=== PATIENT | male | born 1935 | race Caucasian/White ===

== ENCOUNTER 2016-10-24 08:41 | Inpatient (IN) | payer OTHER ==
[2016-10-24] MEDS ORDERED: Sodium Chloride 0.9% 10 ML Syringe FLUSH PRN (08:52)
[2016-10-24] MEDS ORDERED: Lactated Ringers 1,000 ML IV SCH (09:15)
[2016-10-24] MEDS ORDERED: Sodium Chloride 0.9% 500 ML IV ONE (09:18)
[2016-10-24 10:02] LABS: CHLORIDE,CL 105 mmol/L (98-107); SODIUM,NA 143 mmol/L (136-145)
[2016-10-24] MEDS ORDERED: Oseltamivir 75 MG Cap PO ONE (10:02)
--- NOTE | 2016-10-24 12:46 | PCM.HP ---
H&P History of Present Illness - General Date of Service: 10/24/16 Admit Problem/Dx: Admission Diagnosis/Problem Admission Diagnosis/Problem Influenza Source of Information: Patient, Family History Limitations: Reports: Altered mental status (patient's gives most of the history) - History of Present Illness Initial Comments - Free Text/Narative: Mr. Palomares is an 81 yo male with past medical history of atrial fibrillation, hypertension, sleep apnea, hyperlipidemia, dementia, anxiety, multiple cancers ( colon, skin, prostate, melanoma), history of TIA, status post mitral valve surgery in 1998, gout, and BPH who presented to the ED today for evaluation of generalized weakness and rigors. Over the past 2-3 days, he has had some mild rhinorrhea and cough. Overnight, his cough significantly worsened and when he woke up this morning his noticed that he was very weak and was shaking. He was responsive during this entire time. He had not felt feverish and they did not check his temperature at home. He did get a flu shot this year and denies any known exposures to influenza. His appetite has been good and he has not had any vomiting or diarrhea. He does have underlying dementia and is acting like his usual self. There are no known sick contacts. He has not been taking any [id number] medications for his symptoms. - Related Data Allergies/Adverse Reactions: Allergies Allergy/AdvReac Type Severity Reaction Status Date / Time lactose Allergy Stomach Verified 10/24/16 09:00 Upset Home Medications: Home Meds Allopurinol [Zyloprim] 100 mg PO DAILY 12/14/13 [History] Aspirin [Joel Chewable Aspirin] 81 mg PO DAILY 12/14/13 [History] Cholecalciferol (Vitamin D3) [Vitamin D3] 2,000 unit PO DAILY 12/14/13 [History] Diltiazem [Cardizem CD] 120 mg PO DAILY 12/14/13 [History] LORazepam [Ativan] 1 mg PO BEDTIME 12/14/13 [History] Metoprolol Succinate [Toprol XL] 75 mg PO DAILY 12/14/13 [History] Multivitamin [Multi-Vitamin Daily] 1 tab PO DAILY 12/14/13 [History] Pravastatin [Pravachol] 40 mg PO BEDTIME 12/14/13 [History] Acetaminophen [Pain Relief] 650 mg PO QID PRN 04/13/15 [History] Mirtazapine 7.5 mg PO BEDTIME 04/13/15 [History] Lutein/Minerals/Vit A,C & E [Ocuvite] 1 tab PO DAILY 10/24/16 [History] Memantine HCl [Memantine HCl] 10 mg PO BID 10/24/16 [History] Warfarin [Coumadin] 1.25 mg PO WE@20 10/24/16 [History] Warfarin [Coumadin] 2.5 mg PO ASDIRECTED 10/24/16 [History] Past Medical History HEENT History: Reports: Cataract Cardiovascular History: Reports: Afib, High cholesterol, Hypertension Other Cardiovascular History: mitral valve repair Respiratory History: Reports: Other (see below) Other Respiratory History: DANUTA on CPAP Gastrointestinal History: Reports: None Genitourinary History: Reports: BPH Musculoskeletal History: Reports: Arthritis, Gout Neurological History: Reports: TIA, Other (see below) Other Neuro History: Dementia Psychiatric History: Reports: Anxiety, Dementia Endocrine/Metabolic History: Reports: None Hematologic History: Reports: None Immunologic History: Reports: None Oncologic (Cancer) History: Reports: Colon, Prostate Dermatologic History: Reports: Melanoma, Other (see below) Other Dermatologic History: basal cell carcinoma - Infectious Disease History Infectious Disease History: Reports: None - Past Surgical History HEENT Surgical History: Reports: Cataract surgery Cardiovascular Surgical History: Reports: Other (see below) Other Cardiovascular Surgeries/Procedures: mitral valve repair GI Surgical History: Reports: Hernia, inguinal, Other (see below) Other GI Surgeries/Procedures: colon cancer. colectomy Male Surgical History: Reports: Prostatectomy Other Male Surgeries/Procedures: prostate cancer Musculoskeletal Surgical History: Reports: Knee replacement Other Musculoskeletal Surgeries/Procedures:: bilateral TKA, back surgery. bunionectomy. back surgery Dermatological Surgical History: Reports: Other (see below) Other Dermatological Surgeries/Procedures: Mohs Social & Family History - Family History Cardiac: Reports: CAD, High cholesterol Neurological: Reports: CVA Oncologic: Reports: Lymphoma - Tobacco Use Smoking Status *Q: Former Smoker Years of Tobacco use: 3 Used Tobacco, but Quit: Yes Month Tobacco Last Used: 01/1950 Second Hand Smoke Exposure: No - Caffeine Use Caffeine Use: Reports: None - Alcohol Use Alcohol Use History: No Days Per Week of Alcohol Use: 0 Number of Drinks Per Day: 0 Total Drinks Per Week: 0 Alcohol Use in Last Twelve Months: No - Recreational Drug Use Recreational Drug Use: No Drug Use in Last 12 Months: No - Living Situation & Occupation Living situation: Reports: , with significant other Occupation: retired (Independent for ADLs; 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 Denies: sore throat Pulmonary: Reports: Cough. Denies: Shortness of Breath, Pleuritic Chest Pain Cardiovascular: Reports: no symptoms Gastrointestinal: Reports: No symptoms Genitourinary: Reports: no symptoms Musculoskeletal: Reports: no symptoms Skin: Reports: no symptoms Psychiatric: Reports: no symptoms Neurological: Reports: No Symptoms Exam - Exam Exam: See Below - Vital Signs Vital Signs: Last Vital Signs Temp 38.1 C 10/24/16 10:20 Pulse 112 H 10/24/16 10:20 Resp 20 10/24/16 10:20 BP 142/68 H 10/24/16 10:20 Pulse Ox 96 10/24/16 10:20 Weight: 73.845 kg - Exam Quality Assessment: supplemental oxygen General: alert, cooperative. No: mild distress, moderate distress, severe distress HEENT: Conjunctiva clear, EOMI, Hearing intact, Mucosa moist & pink, Pupils equal, Pupils reactive Neck: supple, trachea midline. No: lymphadenopathy, thyromegaly Lungs: Crackles (in the lower lung thakkar bilaterally) Cardiovascular: regular rate, regular rhythm, normal S1, normal S2. No: systolic murmur, diastolic murmur Abdomen: normal bowel sounds, soft. No: organomegaly, tenderness Extremities: normal inspection, normal pulses. No: edema Skin: warm, dry, intact Neurological: other (unable to lift right arm for orthopedic reasons (rotator cuff tear) but otherwise nonfocal neuro exam) - Patient Data Result Diagrams: 10/24/16 09:15 10/24/16 09:15 *Q Meaningful Use (ADM) - VTE *Q VTE Criteria *Q: - Stroke *Q Stroke Criteria *Q: - AMI *Q AMI Criteria *Q: - Problem List (1) Influenza B SNOMED Code(s): 01999458 ICD Code: J10.1 - FLU DUE TO OTH IDENT INFLUENZA VIRUS W OTH RESP MANIFEST Status: Acute Current Visit: Yes Problem Details: - Influenza B positive, explaining his constellation of symptoms. - Does have some SIRS response with this. - No evidence for bacterial pneumonia based on WBC and CXR. - Will treat with tamiflu given age and duration of symptoms around 48 hours. Needs renal dosing due to CrCl <60. Will do 30 mg BID per recommendations. - Oxygen as needed. (2) Generalized weakness SNOMED Code(s): 77204165 ICD Code: R53.1 - WEAKNESS Status: Acute Current Visit: Yes Problem Details: - Likely secondary to influenza B. All other laboratory testing ( electrolytes, TSH, liver function, kidney function, calcium) unremarkable; chest x-ray without evidence of bacterial pneumonia. Other infectious cause (UTI , GI, skin) less likely based on history and exam. - Will monitor for improvement with treatment of influenza B. - If issues with weakness do not improve with treatment of influenza, will have PT evaluate and treat. (3) Acute kidney injury SNOMED Code(s): 71140012 ICD Code: N17.9 - ACUTE KIDNEY FAILURE, UNSPECIFIED Status: Acute Current Visit: Yes Problem Details: - Baseline creatinine was 1.1 on last check (02/2016). - Creatinine is up to 1.4 today, meeting criteria for BOBBY. - Likely prerenal based on history vs. underlying CKD. He has no history to suggest obstructive or intrinsic renal cause. - Will monitor creatinine after hydration and pursue additional work-up if it does not improve. - He will get a total of 1 L IV and then switch to PO. (4) Dehydration SNOMED Code(s): 82434454 ICD Code: E86.0 - DEHYDRATION Status: Acute Current Visit: Yes Problem Details: - See above under BOBBY. (5) Hypertension SNOMED Code(s): 04866429 ICD Code: I10 - ESSENTIAL (PRIMARY) HYPERTENSION Status: Chronic Current Visit: Yes Problem Details: - BP good on admission. - Continue diltiazem and metoprolol. Qualifiers: Hypertension type: essential hypertension Qualified Code(s): I10 - Essential (primary) hypertension (6) Central sleep apnea Status: Chronic Current Visit: Yes Problem Details: - Will have him get his CPAP from home to use while admitted. (7) Hyperlipidemia SNOMED Code(s): 97846848 ICD Code: E78.5 - HYPERLIPIDEMIA, UNSPECIFIED Status: Chronic Current Visit: Yes Problem Details: - Continue pravastatin. Qualifiers: Hyperlipidemia type: unspecified Qualified Code(s): E78.5 - Hyperlipidemia , unspecified (8) Anxiety SNOMED Code(s): 56795943 ICD Code: F41.9 - ANXIETY DISORDER, UNSPECIFIED Status: Chronic Current Visit: Yes Problem Details: - Continue lorazepam and mirtazapine. (9) A-fib SNOMED Code(s): 37207753 ICD Code: I48.91 - UNSPECIFIED ATRIAL FIBRILLATION Status: Chronic Priority: Medium Current Visit: No Problem Details: - Rate is up today but suspect that is more related to SIRS. - Will continue diltiazem and metoprolol. - Monitor with q4 hour checks. - Patient does not require telemetry. - INR is 1.5. Patient does not have an indication for bridging and has had history of easy bleeding. - Will hold off on any lovenox today. If INR is down further tomorrow, will need to consider starting this for VTE prophylaxis. Qualifiers: Atrial fibrillation type: chronic Qualified Code(s): I48.2 - Chronic atrial fibrillation (10) Cerebrovascular disease SNOMED Code(s): 17905198 ICD Code: I67.9 - CEREBROVASCULAR DISEASE, UNSPECIFIED Status: Chronic Current Visit: Yes Problem Details: - Has h/o recurrent TIAs. - No current symptoms of a stroke. - Continue medications as noted under other problems above. Also continue aspirin. (11) Dementia SNOMED Code(s): 36774136 ICD Code: F03.90 - UNSPECIFIED DEMENTIA WITHOUT BEHAVIORAL DISTURBANCE Status: Chronic Current Visit: No Problem Details: - Continue memantine. 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 He is on low dose and does not require renal dose adjustment. Problem List Initiated/Reviewed/Updated: Yes Orders Last 24hrs: Active Orders 24 hr Category Date Time Status Notify Provider Vital Signs [RC] ASDIRECTED Care 10/24/16 12:29 Ordered Oxygen Therapy [RC] PRN Care 10/24/16 12:29 Ordered Up With Assistance [RC] ASDIRECTED Care 10/24/16 12:29 Ordered VTE/DVT Education [RC] PER UNIT ROUTINE Care 10/24/16 12:29 Ordered Vital Signs [RC] Q4H Care 10/24/16 12:29 Ordered Regular Diet [DIET] Diet 10/24/16 Dinner Ordered BASIC METABOLIC PANEL,BMP [CHEM] Routine Lab 10/25/16 05:11 Ordered CBC WITH AUTO DIFF [HEME] Routine Lab 10/25/16 05:11 Ordered Acetaminophen [Tylenol] Med 10/24/16 12:31 Ordered 650 mg PO QID PRN Allopurinol [Zyloprim] Med 10/25/16 08:00 Ordered 100 mg PO DAILY Aspirin Med 10/25/16 08:00 Ordered 81 mg PO DAILY Diltiazem [Cardizem CD] Med 10/25/16 08:00 Ordered 120 mg PO DAILY LORazepam Med 10/24/16 20:00 Ordered 1 mg PO BEDTIME Memantine [Namenda] Med 10/24/16 20:00 Ordered 10 mg PO BID Metoprolol Succinate [Toprol XL] Med 10/24/16 20:00 Ordered 75 mg PO BEDTIME Mirtazapine [Mirtazapine] Med 10/24/16 20:00 Ordered 7.5 mg PO BEDTIME Oseltamivir [Tamiflu] Med 10/24/16 20:00 Ordered 30 mg PO BID Pravastatin Sodium Med 10/24/16 20:00 Ordered 40 mg PO BEDTIME Warfarin [Coumadin] Med 10/24/16 20:00 Ordered 2.5 mg PO BEDTIME Isolation [COMM] Routine Oth 10/24/16 10:38 Ordered Resuscitation Status Routine Resus Stat 10/24/16 12:29 Ordered Medication Orders Acetaminophen (Tylenol) 650 mg PO QID PRN PRN Reason: Pain (Mild 1-3)/Fever Allopurinol (Zyloprim) 100 mg PO DAILY ROSE Aspirin (Aspirin) 81 mg PO DAILY ROSE Diltiazem HCl (Cardizem Cd) 120 mg PO DAILY ROSE Memantine (Namenda) 10 mg PO BID ROSE Metoprolol Succinate (Toprol Xl) 75 mg PO BEDTIME ROSE Non-Formulary Medication (Lorazepam) 1 mg PO BEDTIME ROSE Non-Formulary Medication (Mirtazapine [Mirtazapine]) 7.5 mg PO BEDTIME ROSE Non-Formulary Medication (Pravastatin Sodium) 40 mg PO BEDTIME ROSE Oseltamivir Phosphate (Tamiflu) 30 mg PO BID ROSE Sodium Chloride (Saline Flush) 10 ml FLUSH ASDIRECTED PRN PRN Reason: Keep Vein Open Warfarin Sodium (Coumadin) 2.5 mg PO BEDTIME ROSE Assessment/Plan Comment:: 81 yo male admitted with generalized weakness secondary to influenza B infection. He is otherwise stable from a respiratory standpoint. He will be continue on tamiflu but at a reduced dose of 30 mg BID for renal impairment. He got a total of 1 L IV fluids and will encourage PO intake after this. Oxygen PRN. Anticipate he will be admitted for 48-72 hours. No VTE prophylaxis ordered today. Will follow-up on tomorrow's INR and determine need at that time. Patient is DNR/DNI. He will be followed by Dr. Crain over the weekend.
[2016-10-24] MEDS: Acetaminophen 325 MG Tab PO PRN ×2 (13:30→22:16)
[2016-10-24] MEDS: Oseltamivir 30 MG Cap PO SCH (19:59)
[2016-10-24] MEDS: Memantine 10 MG Tab PO SCH (19:59)
[2016-10-24] MEDS ORDERED: Simvastatin 20 MG Tab PO SCH (20:00)
[2016-10-24] MEDS ORDERED: Mirtazapine 15 MG Tab PO SCH (20:00)
[2016-10-24] MEDS ORDERED: Warfarin 2.5 MG Tab PO SCH (20:00)
[2016-10-24] MEDS ORDERED: LORazepam 1 MG Tab PO SCH (20:00)
[2016-10-24] MEDS ORDERED: Metoprolol Succinate 25 MG Tab.ER PO SCH (20:00)
--- NOTE | 2016-10-24 22:55 | ER ---
Date of Service: 10/24/2016 HISTORY OF PRESENT ILLNESS: Mr. Palomares presents to emergency room with fever, chills, and confusion. The patient's family states that over the past 2-3 days, he has had some rhinorrhea and cough and last night developed worsening of his symptoms as well as fever, chills, and weakness. The patient was subsequently brought in to the ER for evaluation. He does have a history of dementia and family states that he is acting about the same as he normally does. They state that he has not been experiencing any significant respiratory difficulty. They have not been checking his temperature at home. The patient does have a history of mitral valve replacement in 1998 as well as atrial fibrillation and again dementia. PAST MEDICAL HISTORY: 1. Atrial fibrillation. 2. Hypertension. 3. Sleep apnea. 4. Hyperlipidemia. 5. Dementia. 6. Anxiety. 7. Colon cancer. 8. Prostate cancer. 9. Melanoma. 10.History of TIA. 11.Status post mitral valve replacement in 1998. 12.Gout. 13.BPH. REVIEW OF SYSTEMS: General: Positive for fever, chills and rigors. HEENT: Positive for rhinorrhea and nasal congestion. No complaints of sore throat. Respiratory: Positive for cough. No obvious respiratory distress. Cardiac: No complaints of substernal chest pain. No jaw, arm, neck, or back pain. No palpitations. GI: No nausea, vomiting, or diarrhea. No melena, hematochezia, or hematemesis. : Denies any dysuria. Musculoskeletal: No myalgias or arthralgias. Neurologic: No fainting, blackouts, or lightheadedness. PHYSICAL EXAMINATION: General: This is an 81-year-old male patient, who is in no acute distress. Vital Signs: Blood pressure is 111/68, pulse rate is 112, temperature is 39.3, respiratory rate is 20, O2 saturations 96% on room air. Skin: Warm, pink, and dry. HEENT. Head is normocephalic, atraumatic. Eyes, PERRLA. Extraocular movements are intact. Mouth, oral mucosa is moist. No erythema or exudate noted. No hypopharynx. Neck: Supple. No masses. There is no lymphadenopathy. Lungs: Diminished with some crackles noted in the mid lung thakkar. Heart: Regular rate and rhythm. Abdomen: Soft, nontender. There is no hepatosplenomegaly or masses noted. Extremities: Without edema. Neurologic: He is awake and is interactive with his family. LABORATORY DATA: Influenza swabs were obtained. He was positive for influenza B. Hematology, WBCs 5.5, hemoglobin is 14.5, platelets are 98. Coags; PT is 16.5, INR is 1.5. Chemistry; sodium is 143, potassium is 4.4, chloride is 105, bicarb is 30, BUN is 22, creatinine is 1.4. GFR is 49, glucose is 117, lactic acid is 1.2, calcium is 8.6, corrected calcium is 8.84, total bilirubin is 0.7. AST is 21, ALT is 24. Alkaline phosphatase is 142, CK is 69. Troponin is less than 0.017. C-reactive protein is 0.3 TSH is 1.358. EMERGENCY ROOM COURSE: IV access had been established by EMS. He was given a 500 mL fluid bolus. On obtaining his positive influenza, he was given Tamiflu 75 mg here in the emergency room. He remained stable under my care and experienced no significant respiratory distress. ASSESSMENT: Influenza B. PLAN: The patient will be admitted to our facility for further evaluation and treatment. I spoke with Dr. Rosa Christensen who will be admitted admitting the patient acutely. The patient is a code level 2 with instructions for no intubation or resuscitation. MWK: 10/24/2016 18:13:23 MODL: 10/24/2016 22:48:39 /[id number]
[2016-10-25] MEDS: Memantine 10 MG Tab PO SCH (07:41)
[2016-10-25] MEDS: Oseltamivir 30 MG Cap PO SCH ×2 (07:41→17:42)
[2016-10-25] MEDS ORDERED: Aspirin 81 MG Tab.EC PO SCH (08:00)
[2016-10-25] MEDS ORDERED: Diltiazem 120 MG Cap.CD PO SCH (08:00)
[2016-10-25] MEDS ORDERED: Allopurinol 100 MG Tab PO SCH (08:00)
--- NOTE | 2016-10-25 09:22 | PN ---
Progress Note for BO JUAREZ Date: 10/25/2016 Room #: VM.217 SUBJECTIVE: This is an 81-year-old white male, admitted yesterday with weakness, dehydration, and influenza. He is found to be positive for influenza B. He was started on Tamiflu at a renal dose of 30 mg b.i.d. He was given a total of 1 L of IV fluids yesterday. He is feeling better this morning, less weakness. He still has O2 requirement, and he is going to need oxygen at 1 L now with an O2 saturation of 93%. He said he is feeling better overall. He is not having any chest pain or significant cough or shortness of breath. OBJECTIVE: General: He is alert. He is afebrile. Pulse is 86, blood pressure is 129/84, O2 sats 93% on 1 L. Heart: Regular rate rhythm. Lungs: Crackles in both bases. They are clear with coughing. Abdomen: Benign. Extremities: Warm and dry. No edema. LABORATORY DATA: Laboratory from today is white count 5.0 and hemoglobin 14.3, both stable. INR is 1.7, which is increased from 1.5 yesterday. Creatinine today is 1.3, improved from yesterday. ASSESSMENT: 1. Influenza B. 2. Weakness, improved. PLAN: Ambulate today. Encouraged to try incentive spirometer. Try to wean off his O2. Could possibly be discharged by supper time if he is improved and off his oxygen. FM: 10/25/2016 09:02:26 MODL: 10/25/2016 09:15:21 /[id number]
[2016-10-25] MEDS ORDERED: Oseltamivir 30 MG Cap ONE (12:00)
[2016-10-25 17:15] VITALS: BP 126/74
--- NOTE | 2016-10-26 04:21 | DISCH ---
FINAL DIAGNOSES: 1. Influenza B. 2. Generalized weakness secondary to influenza B. 3. Mild elevation of his creatinine. 4. Dehydration secondary to influenza B. BRIEF HISTORY: An 81-year-old white male was admitted to the emergency room on the day of admission with influenza-like illness and with fever and chills and weakness. He was assessed and found to be positive for influenza B. He was started initially on Tamiflu 75 mg and then the dose was reduced to 30 mg b.i.d. because of renal dosing needs. He was given some IV fluids in the emergency room and felt that he would need to be admitted to the hospital for ongoing care and evaluation and IV fluids. LABORATORIES: White count was 5.0, hemoglobin 14.3, INR frantz to 1.7, creatinine improved to 1.3 from a high of 1.4. Electrolytes remained stable. His TSH was normal. LFTs were unremarkable, except for mild elevation of his alkaline phosphatase. Influenza B nasal swab was positive. Blood cultures were negative after 24 hours. He had a mild need for oxygen. HOSPITAL COURSE: He was admitted. He was given IV fluids, received a total of 1 L of IV fluids over his hospital stay. His Tamiflu was dosed at 30 mg twice a day and he will complete a 5-day course. He was doing much better on the day of discharge. He was up ambulating without problems. He was able to be weaned off his oxygen and he was at 93% on room air. His lungs were clear. Incentive spirometer helped to improve his symptoms and improve his oxygenation. He was stable and is back to his usual self. His family is comfortable taking him home. DISCHARGE MEDICATIONS: Tamiflu 30 mg b.i.d. to complete a 5-day course, Coumadin 2.5 mg daily as directed, pravastatin 40 mg daily, multivitamin daily, mirtazapine 7.5 mg at bedtime, Toprol-XL 75 mg daily, Namenda 10 mg b.i.d., Ocuvite daily, lorazepam 1 mg at bedtime, diltiazem 120 mg daily, vitamin D3 of 2000 units daily, aspirin 81 mg daily, Zyloprim 100 mg daily, and Tylenol p.r.n. FOLLOWUP AND INSTRUCTIONS: He was advised to take plenty of fluids and rest. Instructions on influenza management and what to watch for were given to him. Follow up with his primary provider as previously scheduled. Call or return if problems or concerns or if symptoms worsen. Duration of discharge day evaluation greater than 30 minutes. FM: 10/25/2016 17:53:37 MODL: 10/26/2016 03:54:11 /[id number]
== END 2016-10-25 18:05 | disposition home or self-care (01) | DRG 194 ==
LOC: VM.ED 08:41 → VM.MS 10:15
PROVIDERS: ADMIT Family Medicine; ATTEND Internal Medicine
DX: J10.1 Influenza due to other identified influenza virus with other respiratory manifestations (principal); N17.9 Acute kidney failure, unspecified; E86.0 Dehydration; Z79.01 Long term (current) use of anticoagulants; I48.2 Chronic atrial fibrillation; I10 Essential (primary) hypertension; G47.33 Obstructive sleep apnea (adult) (pediatric); F03.90 Unspecified dementia, unspecified severity, without behavioral disturbance, psychotic disturbance, mood disturbance, and anxiety; F41.9 Anxiety disorder, unspecified; Z86.73 Personal history of transient ischemic attack (TIA), and cerebral infarction without residual deficits; Z95.2 Presence of prosthetic heart valve; N40.0 Benign prostatic hyperplasia without lower urinary tract symptoms; Z82.49 Family history of ischemic heart disease and other diseases of the circulatory system; Z87.891 Personal history of nicotine dependence; M1A.9XX1 Chronic gout, unspecified, with tophus (tophi); Z66 Do not resuscitate
CPT/HCPCS: 36415; 71020; 80048; 80053; 82550; 83605; 84443; 84484; 85025; 85610; 86140; 87040; 87804; 93005; 94760; 96360; 99284-GF; 99285; A9270-GY; J7030; J7050

== ENCOUNTER 2019-09-01 12:14 | Emergency (ER) | payer MEDICARE ==
--- NOTE | 2019-09-01 12:26 | EDM.PDOC ---
ED HPI GENERAL MEDICAL PROBLEM - General Chief Complaint: Syncope Stated Complaint: ER Time Seen by Provider: 09/01/19 12:15 Source of Information: Reports: EMS, [facility] History Limitations: Reports: No Limitations - History of Present Illness INITIAL COMMENTS - FREE TEXT/NARRATIVE: EMS was called via [facility] staff secondary to patient was found unresponsive for approximately questionable 10 minutes with a low blood pressure 64/46 at the [facility] per their staff upon EMS arrival patient was alert answering questions following all commands with normal vital signs he was transported here to the ER with no complications Patient states that he feels fine has no complaints at this time he is alert follows all commands but is not oriented to the date year or president he does know location cranial nerves II through XII are intact he has normal conversation and speech logical thought process per [facility] staff this is his baseline Duration: Minutes: - Related Data Allergies Allergy/AdvReac Type Severity Reaction Status Date / Time lactose Allergy Stomach Verified 09/01/19 12:34 Upset Home Meds: Home Meds Aspirin [Joel Chewable Aspirin] 81 mg PO DAILY 12/14/13 [History] Cholecalciferol (Vitamin D3) [Vitamin D3] 2,000 unit PO DAILY 12/14/13 [History] Diltiazem [Cardizem CD] 120 mg PO DAILY 12/14/13 [History] LORazepam [Ativan] 0.5 mg PO BEDTIME 12/14/13 [History] Metoprolol Succinate [Toprol XL] 75 mg PO DAILY 12/14/13 [History] Multivitamin [Multi-Vitamin Daily] 1 tab PO DAILY 12/14/13 [History] Pravastatin [Pravachol] 40 mg PO BEDTIME 12/14/13 [History] allopurinoL [Zyloprim] 100 mg PO DAILY 12/14/13 [History] Acetaminophen [Pain Relief] 650 mg PO QID PRN 04/13/15 [History] Lutein/Minerals/Vit A,C & E [Ocuvite] 1 tab PO DAILY 10/24/16 [History] Memantine HCl 10 mg PO BID 10/24/16 [History] Warfarin [Coumadin] 1.25 mg PO ASDIRECTED 10/24/16 [History] Warfarin [Coumadin] 2.5 mg PO ASDIRECTED 10/24/16 [History] Donepezil [Aricept] 5 mg PO DAILY 07/04/17 [History] Acetaminophen [Tylenol Arthritis Pain] 650 mg PO BID 09/01/19 [History] Bisacodyl [Dulcolax] 10 mg RC Q4D PRN 09/01/19 [History] Bisacodyl [Laxative] 5 mg PO DAILY PRN 09/01/19 [History] Cyanocobalamin (Vitamin B-12) [B-12] 1,000 mcg PO DAILY 09/01/19 [History] Mirtazapine [Remeron] 15 mg PO BEDTIME 09/01/19 [History] Omeprazole Magnesium [Prilosec Otc] 20 mg PO DAILY 09/01/19 [History] Past Medical History HEENT History: Reports: Cataract Cardiovascular History: Reports: Afib, High Cholesterol, Hypertension Other Cardiovascular History: mitral valve repair Respiratory History: Reports: Other (See Below) Other Respiratory History: DANUTA on CPAP Gastrointestinal History: Reports: None Genitourinary History: Reports: BPH Musculoskeletal History: Reports: Arthritis, Gout Neurological History: Reports: TIA, Other (See Below) Other Neuro History: Dementia Psychiatric History: Reports: Anxiety, Dementia Endocrine/Metabolic History: Reports: None Hematologic History: Reports: None Immunologic History: Reports: None Oncologic (Cancer) History: Reports: Colon, Prostate Dermatologic History: Reports: Melanoma, Other (See Below) Other Dermatologic History: basal cell carcinoma - Infectious Disease History Infectious Disease History: Reports: None - Past Surgical History HEENT Surgical History: Reports: Cataract Surgery Cardiovascular Surgical History: Reports: Other (See Below) GI Surgical History: Reports: Hernia, Inguinal, Other (See Below) Male Surgical History: Reports: Prostatectomy Other Male Surgeries/Procedures: prostate cancer Musculoskeletal Surgical History: Reports: Knee Replacement Dermatological Surgical History: Reports: Other (See Below) Social & Family History - Family History Cardiac: Reports: CAD, High Cholesterol Neurological: Reports: CVA Oncologic: Reports: Lymphoma - Caffeine Use Caffeine Use: Reports: None - Living Situation & Occupation Living situation: Reports: , with Significant Other Occupation: Retired ED ROS GENERAL - Review of Systems Review Of Systems: See Below Constitutional: Reports: No Symptoms. Denies: Fever, Chills, Malaise, Weakness , Fatigue HEENT: Reports: No Symptoms Respiratory: Reports: No Symptoms. Denies: Shortness of Breath, Wheezing, Pleuritic Chest Pain, Cough Cardiovascular: Reports: Syncope. Denies: Chest Pain, Blood Pressure Problem, Dyspnea on Exertion, Lightheadedness, Palpitations Endocrine: Reports: No Symptoms GI/Abdominal: Reports: No Symptoms : Reports: No Symptoms Musculoskeletal: Reports: No Symptoms Skin: Denies: Cyanosis Neurological: Reports: Syncope. Denies: Confusion, Headache, Numbness, Weakness Psychiatric: Reports: No Symptoms Hematologic/Lymphatic: Reports: No Symptoms Immunologic: Reports: No Symptoms - Physical Exam Exam: See Below Exam Limited By: No Limitations General Appearance: Alert, WD/WN, No Apparent Distress, Other (Very friendly follows all commands cranial nerves II through XII are intact) Eye Exam: Bilateral Eye: EOMI, PERRL Ears: Normal External Exam, Normal Canal, Hearing Grossly Normal, Normal TMs Nose: Normal Inspection, Normal Mucosa, No Blood Throat/Mouth: Normal Inspection, Normal Lips, Normal Teeth, Normal Gums, Normal Oropharynx, Normal Voice, No Airway Compromise Head Exam: Atraumatic, Normocephalic Neck: Normal Inspection, Supple, Non-Tender, Full Range of Motion. No: Carotid Bruit Respiratory/Chest: No Respiratory Distress, Lungs Clear, Normal Breath Sounds, No Accessory Muscle Use, Chest Non-Tender Cardiovascular: Normal Peripheral Pulses, No Edema, No Gallop, No JVD, No Murmur , No Rub, Other (Irregular irregular heart rate). No: Regular Rate, Rhythm GI/Abdominal: Normal Bowel Sounds, Soft, Non-Tender, No Organomegaly, No Distention Neuro Exam (Abbreviated): Alert, Oriented, CN II-XII Intact, Normal Reflexes, No Motor/Sensory Deficits, Other (Equal facial sensation bilateral 5-5 upper extremity lower extremity equal manager performance improvement) Extremities: Normal Inspection, Normal Range of Motion, Non-Tender, No Pedal Edema, Normal Capillary Refill Psychiatric: Normal Affect, Normal Mood Skin Exam: Warm, Dry, Intact, Normal Color, No Rash Course - Vital Signs Text/Narrative:: CBC BMP coags: Troponin chest x-ray EKG EKG reveals A. fib chronic CBC within normal limits BMP mildly elevated BUN and creatinine troponin 0 INR was within normal limits chest x-ray no acute findings UA was negative PCP Chio Rea feels that he does not meet observation Last Recorded V/S: Last Vital Signs Temp 36.9 C 09/01/19 14:04 Pulse 86 09/01/19 14:04 Resp 16 09/01/19 14:04 BP 118/78 09/01/19 14:04 Pulse Ox 98 09/01/19 14:04 - Orders/Labs/Meds Orders: Active Orders 24 hr Category Date Time Status EKG 12 Lead [EKG Documentation Completion] [RC] STAT Care 09/01/19 12:38 Active Labs: Laboratory Tests 09/01/19 09/01/19 09/01/19 Range/Units 12:35 12:35 12:35 WBC 3.9 L (4.0-10.0) x10^3/uL RBC 3.99 L (4.5-6.0) x10^6/uL Hgb 12.6 L D (14.0-18.0) g/dL Hct 39.0 L (40.0-52.0) % MCV 97.7 H (78.0-93.0) fL MCH 31.6 (26.0-32.0) pg MCHC 32.3 (32.0-36.0) g/dL RDW Coeff of Lina 13.1 (10.0-15.0) % Plt Count 156 (130-400) x10^3/uL Neut % (Auto) 73.2 (50.0-80.0) % Lymph % (Auto) 13.0 L (25.0-50.0) % [place] % (Auto) 7.4 (2.0-11.0) % Eos % (Auto) 5.6 H (0.0-4.0) % Baso % (Auto) 0.8 (0.2-1.2) % PT 24.9 H (10.0-12.8) SEC INR 2.2 (2.0-3.5) Sodium 144 (136-145) mmol/L Potassium 4.7 (3.5-5.1) mmol/L Chloride 106 (98-107) mmol/L Carbon Dioxide 31 (21-32) mmol/L Anion Gap 11.7 (10-20) mmol/L BUN 27 H (7-18) mg/dL Creatinine 1.8 H (0.70-1.30) mg/dL Est Cr Clr Drug Dosing TNP Estimated GFR (MDRD) 36 Glucose 153 H (74-106) mg/dL Calcium 8.7 (8.5-10.1) mg/dL Troponin I < 0.017 (<=0.056) ng/mL Urine Color (YELLOW) Urine Appearance (CLEAR) Urine pH (5.0-8.0) Ur Specific [place] Urine Protein (NEGATIVE) mg/dL Urine Glucose (UA) (NEGATIVE) mg/dL Urine Ketones (NEGATIVE) mg/dL Urine Occult Blood (NEGATIVE) Urine Nitrite (NEGATIVE) Urine Bilirubin (NEGATIVE) Urine Urobilinogen (0.2) EU/dL Ur Leukocyte Esterase (NEGATIVE) Urine RBC (NOT SEEN) /HPF Urine WBC (NOT SEEN) /HPF Ur Squamous Epith Cells (NEGATIVE) /HPF Urine Bacteria (NEGATIVE) /HPF Hyaline Casts (NEGATIVE) /HPF Urine Mucus (NEGATIVE) /LPF 09/01/19 Range/Units 13:59 WBC (4.0-10.0) x10^3/uL RBC (4.5-6.0) x10^6/uL Hgb (14.0-18.0) g/dL Hct (40.0-52.0) % MCV (78.0-93.0) fL MCH (26.0-32.0) pg MCHC (32.0-36.0) g/dL RDW Coeff of Lina (10.0-15.0) % Plt Count (130-400) x10^3/uL Neut % (Auto) (50.0-80.0) % Lymph % (Auto) (25.0-50.0) % [place] % (Auto) (2.0-11.0) % Eos % (Auto) (0.0-4.0) % Baso % (Auto) (0.2-1.2) % PT (10.0-12.8) SEC INR (2.0-3.5) Sodium (136-145) mmol/L Potassium (3.5-5.1) mmol/L Chloride (98-107) mmol/L Carbon Dioxide (21-32) mmol/L Anion Gap (10-20) mmol/L BUN (7-18) mg/dL Creatinine (0.70-1.30) mg/dL Est Cr Clr Drug Dosing Estimated GFR (MDRD) Glucose (74-106) mg/dL Calcium (8.5-10.1) mg/dL Troponin I (<=0.056) ng/mL Urine Color Yellow (YELLOW) Urine Appearance Clear (CLEAR) Urine pH 6.5 (5.0-8.0) Ur Specific [place] 1.020 Urine Protein Negative (NEGATIVE) mg/dL Urine Glucose (UA) Negative (NEGATIVE) mg/dL Urine Ketones Negative (NEGATIVE) mg/dL Urine Occult Blood Negative (NEGATIVE) Urine Nitrite Negative (NEGATIVE) Urine Bilirubin Negative (NEGATIVE) Urine Urobilinogen 0.2 (0.2) EU/dL Ur Leukocyte Esterase Negative (NEGATIVE) Urine RBC 0-5 (NOT SEEN) /HPF Urine WBC 0-5 (NOT SEEN) /HPF Ur Squamous Epith Cells Rare (NEGATIVE) /HPF Urine Bacteria Rare (NEGATIVE) /HPF Hyaline Casts Occasional H (NEGATIVE) /HPF Urine Mucus Few H (NEGATIVE) /LPF Departure - Departure Time of Disposition: 14:20 Disposition: DC/Tfer to [facility] Condition: Good Clinical Impression: Syncope, Chronic a-fib - Discharge Information *PRESCRIPTION DRUG MONITORING PROGRAM REVIEWED*: No *COPY OF PRESCRIPTION DRUG MONITORING REPORT IN PATIENT MALCOLM: No Instructions: Syncope, [id number] Referrals: Chio Rea, DO [Primary Care Provider] - Forms: ED Department Discharge Additional Instructions: intermediate staff check blood pressure every 4 hours with full set of vitals call primary care provider if anything changes return patient to the emergency room if anything changes out of his ordinary baseline or if anything changes or gets worse Take all medicines as prescribed Have the patient seen by his primary care provider in the next 24 to 48 hours Sepsis Event Note - Focused Exam Vital Signs: Vital Signs Temp Pulse Resp BP Pulse Ox 09/01/19 14:04 36.9 C 86 16 118/78 98 09/01/19 12:14 35.8 C 80 18 101/67 98 Date Exam was Performed: 09/01/19 Time Exam was Performed: 14:31 - Problem List & Annotations (1) Syncope SNOMED Code(s): 544246074 Code(s): R55 - SYNCOPE AND COLLAPSE Status: Acute Current Visit: Yes (2) A-fib SNOMED Code(s): 70500544 Code(s): I48.91 - UNSPECIFIED ATRIAL FIBRILLATION Status: Chronic Priority: Medium Current Visit: No Annotation/Comment:: - Rate is up today but suspect that is more related to SIRS. - Will continue diltiazem and metoprolol. - Monitor with q4 hour checks. - Patient does not require telemetry. - INR is 1.5. Patient does not have an indication for bridging and has had history of easy bleeding. - Will hold off on any lovenox today. If INR is down further tomorrow, will need to consider starting this for VTE prophylaxis. Qualifiers: Atrial fibrillation type: chronic - My Orders Last 24 Hours: My Active Orders 09/01/19 12:38 EKG 12 Lead [EKG Documentation Completion] [RC] STAT - Assessment/Plan Last 24 Hours: My Active Orders 09/01/19 12:38 EKG 12 Lead [EKG Documentation Completion] [RC] STAT
[2019-09-01 13:05] LABS: CHLORIDE,CL 106 mmol/L (98-107); SODIUM,NA 144 mmol/L (136-145)
[2019-09-01 13:11] LABS: ANION GAP 11.7 mmol/L (10-20)
--- NOTE | 2019-09-01 13:46 | CR ---
[id number] RAD/RAD Chest PA or AP 1V EXAM: FRONTAL CHEST INDICATION: SYNCOPE. COMPARISON: October 24, 2016. DISCUSSION: Prior sternotomy with valve replacement. Cardiomegaly without evidence of congestive heart failure. Low lung volumes. Mild elevation of the right hemidiaphragm. Mild bibasilar atelectasis with no definite infiltrates. Chronic right clavicle fracture. IMPRESSION: 1. No acute findings. Jack Rivas MD 09/01/19 1552 Thank you for allowing us to participate in the care of your patient.
[2019-09-01 14:05] VITALS: BP 118/78; PULSE 86
== END 2019-09-01 14:47 ==
LOC: VM.ED 12:14
DX: R55 Syncope and collapse (principal); I48.20 Chronic atrial fibrillation, unspecified; I10 Essential (primary) hypertension; E78.00 Pure hypercholesterolemia, unspecified; M10.9 Gout, unspecified; F41.9 Anxiety disorder, unspecified; Z91.011 Allergy to milk products; Z79.82 Long term (current) use of aspirin; Z79.899 Other long term (current) drug therapy; Z86.73 Personal history of transient ischemic attack (TIA), and cerebral infarction without residual deficits
CPT/HCPCS: 36415; 71045; 80048; 81001; 84484; 85025; 85610; 93005; 99284-GF; 99285-25